=== PATIENT | male | born 1980 | race Caucasian/White ===

== ENCOUNTER 2016-08-08 15:36 | Emergency (ER) | payer OTHER ==
[~2016-08-08] VITALS: Ht 172.7 cm; Wt 116.6 kg
[~2016-08-08 15:36] MED LIST: ACET325T96 PO; INDO-24 PO; LEVE500T13 PO; LRS10 PO; QUIN1TAB PO; ZLF/100 PO
[2016-08-08 15:39] VITALS: TEMP 36.7; Ht 172.7 cm; Wt 116.6 kg
[2016-08-08] MEDS ORDERED: NRT/50 PO (15:56)
[2016-08-08 17:10] LABS: BASO % 0.3 %; BASO ABS # 0.02 K/uL (0-0.2); COMPLETE YES; EOS % 1.1 %; HEMATOCRIT 40.9 % (42-52); IG% 0.7 %; LYMPH % 23.6 %; LYMPH ABS # 1.73 K/uL (1.2-3.4); MEAN CORPUSCULAR HEMOGLOBIN 28.8 pg (25-34); MEAN CORPUSCULAR HGB CONC 34.7 g/dl (32-36); MONO % 6.3 %; PLATELET COUNT 345 K/uL (130-400); RED BLOOD COUNT 4.93 M/uL (4.7-6.1); WHITE BLOOD COUNT 7.32 K/uL (4.8-10.8)
[2016-08-08] MEDS ORDERED: KETOROLAC TROMETHAMINE 30 MG/ML VIAL IV STA (17:26)
[2016-08-08 17:30] LABS: URINE APPEARANCE CLEAR (CLEAR); URINE BILIRUBIN NEG (NEG); URINE COLOR YELLOW; URINE NITRITE NEG (NEG); URINE PH 5.5 (4.5-7.5); URINE SPECIFIC GRAVITY 1.024 (1.000-1.030); UROBILINOGEN NEG (NEG); ZZUR CULT IF INDIC CLEAN CATCH NO
[2016-08-08] MEDS ORDERED: DICYCLOMINE HCL 10 MG CAP PO ONE (17:30)
[2016-08-08 17:31] LABS: MANUAL MICROSCOPIC REQUIRED? NO; REVIEW REQ? NO
[2016-08-08 17:47] LABS: BUN/CREATININE RATIO 14.8 (10-20); CALCIUM 8.8 mg/dl (8.5-10.1); CREATININE 0.8 mg/dl (0.60-1.40); POTASSIUM 4.2 mmol/L (3.5-5.1)
[2016-08-08 18:03] LABS: ALB/GLOB RATIO 0.9 (0.9-2)
--- NOTE | 2016-08-08 19:10 | DIAGNOSTIC IMAGING REPORT ---
CT OF THE ABDOMEN AND PELVIS WITHOUT CONTRAST CLINICAL HISTORY: Left lower quadrant pain. COMPARISON STUDY: Right upper quadrant ultrasound November 25, 2009. TECHNIQUE: Axial images of the abdomen and pelvis were obtained without IV contrast. Images were reviewed in the axial, sagittal, and coronal planes. FINDINGS: No renal, ureteral or bladder calculi are present. There is no hydronephrosis or hydroureter. Evaluation of the remainder of the abdomen and pelvis is suboptimal on this unenhanced exam. Unenhanced images of the liver, spleen, adrenal glands and pancreas are normal. There is no peripancreatic or pericholecystic infiltration. There is no evidence for a bowel obstruction. The appendix is normal. There is no ascites. There is no lymphadenopathy. Skeletal structures are unremarkable. IMPRESSION: 1. No urinary calculi or hydronephrosis. 2. No acute process within the abdomen or pelvis on unenhanced exam. Electronically signed by: Kelvin Saldaña M.D. 08/08/2016 7:09 PM Dictated Date/Time: 08/08/2016 7:05 PM
--- NOTE | 2016-08-08 19:26 | EMERGENCY ROOM VISIT NOTE ---
History Report prepared by Lane: Nayla Beltran Under the Supervision of: Dr. Shantell Dias D.O. First contact with patient: 15:53 Chief Complaint: ABDOMINAL PAIN Stated Complaint: LOWER LEFT ABDOMINAL PAIN, PRESSURE LEFT SIDE History of Present Illness The patient is a 36 year old male who presents to the Emergency Room with complaints of abdominal pain in the LLQ for the past 2 weeks. He rates his discomfort as a 2 out of 10 in severity. He states that the pain worsens with coughing, movement, and pressure. The pain radiates down his leg, but not into his groin. He denies any changes in his bowel movements, urinary symptoms, fever , vomiting, or chills. He denies any changes to his diet recently. He has started working out on the idemama recently, but the pain is preventing him from working out lately. He has chronic ear pain and back pain and takes Tylenol and ibuprofen everyday. He also takes baclofen daily for his back. He denies any recent travel or other lifestyle changes. He admits to marijuana use. Source of History: patient Onset: 2 weeks ago Position: abdomen (LLQ) Symptom Intensity: 2/10 Quality: other (pain) Modifying Factors (Worsening): movement, other (coughing, pressure) Associated Symptoms: No chills, No fevers, No urinary symptoms, No vomiting Note: Pt reports that the pain radiates down to his leg. Pt denies any changes to bowel movements, or pain in the groin. Review of Systems See HPI for pertinent positives & negatives. A total of 10 systems reviewed and were otherwise negative. Past Medical & Surgical Medical Problems: (1) Bilateral pleural effusion (2) Chronic back pain (3) Constipation (4) Rib fracture (5) Scoliosis (6) Seizure (7) Sepsis syndrome (8) Sjoegren syndrome (9) Suppurative parotitis Surgical Problems: (1) S/P tonsillectomy Family History FHx: diabetes FHx: heart disease Hypertension Social History Smoking Status: Never Smoker Alcohol Use: none Drug Use: marijuana Marital Status: single Housing Status: lives with family Occupation Status: unemployed Current/Historical Medications Scheduled Levetiracetam (Keppra), 500 MG PO BID Nortriptyline HCl (Nortriptyline HCl), 50 MG PO QPM Quinapril HCl (Quinapril HCl), 40 MG PO DAILY Scheduled PRN Acetaminophen Tab (Tylenol), 650 MG PO for Pain Baclofen (Baclofen), 10 MG PO DIRECTED PRN for Muscle Spasms Dicyclomine Hcl (Bentyl), 20 MG PO Q8 PRN for abdominal pain Allergies Coded Allergies: Sulfamethoxazole w/Trimethoprim (Verified Allergy, Intermediate, RASH, FEVER, 08/08/16) Sulfa Antibiotics (Verified Adverse Reaction, Unknown, MUSCLE PAIN, ) Physical Exam Vital Signs Date Time Temp Pulse Resp B/P Pulse Ox O2 Delivery O2 Flow Rate FiO2 08/08/16 20:11 97 18 148/95 97 08/08/16 18:25 94 20 157/99 97 Room Air 08/08/16 17:22 95 20 176/118 96 Room Air 08/08/16 15:39 36.7 107 20 165/116 97 Room Air Physical Exam GENERAL: alert, well appearing, well nourished, no distress, non-toxic EYE EXAM: normal conjunctiva, PERRL and EOM's grossly intact OROPHARYNX: no exudate, no erythema, lips, buccal mucosa, and tongue normal and mucous membranes are moist NECK: supple, no nuchal rigidity, no adenopathy, non-tender LUNGS: Clear to auscultation. Normal chest wall mechanics HEART: no murmurs, S1 normal and S2 normal ABDOMEN: abdomen soft, minimal LLQ tenderness to palpation, normo-active bowel sounds, no masses, no rebound or guarding. BACK: Back is symmetrical on inspection and there is no deformity, no midline tenderness, no CVA tenderness. SKIN: no rashes and no bruising UPPER EXTREMITIES: upper extremities are grossly normal. LOWER EXTREMITIES: No pitting edema. NEURO EXAM: Normal sensorium, cranial nerves II-XII grossly intact, normal speech, no gross weakness of arms, no gross weakness of legs. Medical Decision & Procedures ER Provider Diagnostic Interpretation: Radiology results have been interpreted by the radiologist and reviewed by me. CT OF THE ABDOMEN AND PELVIS WITHOUT CONTRAST CLINICAL HISTORY: Left lower quadrant pain. COMPARISON STUDY: Right upper quadrant ultrasound November 25, 2009. TECHNIQUE: Axial images of the abdomen and pelvis were obtained without IV contrast. Images were reviewed in the axial, sagittal, and coronal planes. FINDINGS: No renal, ureteral or bladder calculi are present. There is no hydronephrosis or hydroureter. Evaluation of the remainder of the abdomen and pelvis is suboptimal on this unenhanced exam. Unenhanced images of the liver, spleen, adrenal glands and pancreas are normal. There is no peripancreatic or pericholecystic infiltration. There is no evidence for a bowel obstruction. The appendix is normal. There is no ascites. There is no lymphadenopathy. Skeletal structures are unremarkable. IMPRESSION: 1. No urinary calculi or hydronephrosis. 2. No acute process within the abdomen or pelvis on unenhanced exam. Electronically signed by: Kelvin Saldaña M.D. 08/08/2016 7:09 PM Dictated Date/Time: 08/08/2016 7:05 PM Laboratory Results 08/08/16 17:00 Red Blood Count 4.93, Mean Corpuscular Volume 83.0, Mean Corpuscular Hemoglobin 28.8, Mean Corpuscular Hemoglobin Concent 34.7, Mean Platelet Volume 8.0, Neutrophils (%) (Auto) 68.0, Lymphocytes (%) (Auto) 23.6, Monocytes (%) (Auto) 6.3, Eosinophils (%) (Auto) 1.1, Basophils (%) (Auto) 0.3, Neutrophils # (Auto) 4.98, Lymphocytes # (Auto) 1.73, Monocytes # (Auto) 0.46, Eosinophils # (Auto) 0.08, Basophils # (Auto) 0.02 08/08/16 17:00 Test 08/08/16 17:00 08/08/16 17:10 White Blood Count 7.32 K/uL (4.8-10.8) Red Blood Count 4.93 M/uL (4.7-6.1) Hemoglobin 14.2 g/dL (14.0-18.0) Hematocrit 40.9 % (42-52) Mean Corpuscular Volume 83.0 fL (80-100) Mean Corpuscular Hemoglobin 28.8 pg (25-34) Mean Corpuscular Hemoglobin Concent 34.7 g/dl (32-36) Platelet Count 345 K/uL (130-400) Mean Platelet Volume 8.0 fL (7.4-10.4) Neutrophils (%) (Auto) 68.0 % Lymphocytes (%) (Auto) 23.6 % Monocytes (%) (Auto) 6.3 % Eosinophils (%) (Auto) 1.1 % Basophils (%) (Auto) 0.3 % Neutrophils # (Auto) 4.98 K/uL (1.4-6.5) Lymphocytes # (Auto) 1.73 K/uL (1.2-3.4) Monocytes # (Auto) 0.46 K/uL (0.11-0.59) Eosinophils # (Auto) 0.08 K/uL (0-0.5) Basophils # (Auto) 0.02 K/uL (0-0.2) RDW Standard Deviation 41.5 fL (36.4-46.3) RDW Coefficient of Variation 13.7 % (11.5-14.5) Immature Granulocyte % (Auto) 0.7 % Immature Granulocyte # (Auto) 0.05 K/uL (0.00-0.02) Anion Gap 7.0 mmol/L (3-11) Est Creatinine Clear Calc Drug Dose 159.8 ml/min Estimated GFR () 134.1 Estimated GFR (Non- 115.7 BUN/Creatinine Ratio 14.8 (10-20) Calcium Level 8.8 mg/dl (8.5-10.1) Total Bilirubin 0.4 mg/dl (0.2-1) Aspartate Amino Transf (AST/SGOT) 26 U/L (15-37) Alanine Aminotransferase (ALT/SGPT) 49 U/L (12-78) Alkaline Phosphatase 73 U/L (45-117) Total Protein 8.5 gm/dl (6.4-8.2) Albumin 4.0 gm/dl (3.4-5.0) Globulin 4.5 gm/dl (2.5-4.0) Albumin/Globulin Ratio 0.9 (0.9-2) Lipase 98 U/L (73-393) Urine Color YELLOW Urine Appearance CLEAR (CLEAR) Urine pH 5.5 (4.5-7.5) Urine Specific [place] 1.024 (1.000-1.030) Urine Protein NEG (NEG) Urine Glucose (UA) NEG (NEG) Urine Ketones NEG (NEG) Urine Occult Blood NEG (NEG) Urine Nitrite NEG (NEG) Urine Bilirubin NEG (NEG) Urine Urobilinogen NEG (NEG) Urine Leukocyte Esterase NEG (NEG) Laboratory results per my review. Medications Administered Medications (Trade) Dose Ordered Sig/[place] Route Start Time Stop Time Status Last Admin Dose Admin Dicyclomine HCl (Bentyl Cap) 20 mg NOW ONCE PO 08/08/16 17:30 08/08/16 17:31 DC 08/08/16 18:23 20 MG Ketorolac Tromethamine (Toradol Inj) 30 mg NOW STAT IV 08/08/16 17:26 08/08/16 17:28 DC 08/08/16 18:23 30 MG Acetaminophen/ Hydrocodone Bitart ([place] 5/325 Tab) 1 tab NOW STAT PO 08/08/16 19:28 08/08/16 19:30 DC 08/08/16 20:01 1 TAB ED Course 1607: The patient was evaluated in room B4B. A complete history and physical exam was performed. 172: Toradol Inj 30 mg IV. 1729: Bentyl Cap 20 mg PO. 1913: I reevaluated the patient. He is resting comfortably. I discussed the results and treatment plan with him. He verbalized understanding and agreement. He will be discharged home. 1927: [place] 5/325 Tab 1 tab PO. Medical Decision Differential diagnoses includes but is not limited to gastritis, peptic ulcer disease, GERD, gallbladder disease, pancreatitis, small bowel obstruction, acute coronary syndrome, pericarditis, ischemic bowel, irritable bowel disease, irritable bowel syndrome, appendicitis, diverticulitis, malignancy, hernia, urinary tract infection, torsion, perforation, trauma, infectious. Patient well-appearing here despite complaints, vital signs stable, labs and imaging reassuring. Discussed with patient close follow-up with family doctor, symptoms watch and return for, possible need for GI evaluation, he verbalized understanding was agreeable with plan. Impression Primary Impression: Abdominal pain Scribe Attestation The scribe's documentation has been prepared under my direction and personally reviewed by me in its entirety. I confirm that the note above accurately reflects all work, treatment, procedures, and medical decision making performed by me. Departure Information Dispostion Home / Self-Care Prescriptions Dicyclomine Hcl (BENTYL) 20 Mg Tab 20 MG PO Q8 Y for abdominal pain, #20 TAB Prov: Shantell Dias, 08/08/16 Referrals Iveth Joseph MD (PCP) Forms Call Back Authorization, HOME CARE DOCUMENTATION FORM, IMPORTANT VISIT INFORMATION Patient Instructions My [facility] Additional Instructions Please call and follow-up with your family doctor. Please monitor for any changes. If you have any worsening pain, notice blood with a bowel movement, have difficulty urinating, develop fevers, vomiting, or have any other concerns , please return to the emergency room. Problem Qualifiers Primary Impression: Abdominal pain Abdominal location: left lower quadrant Qualified Codes: R10.32 - Left lower quadrant pain
[2016-08-08] MEDS ORDERED: DICY20TA35 PO (19:28)
[2016-08-08] MEDS ORDERED: HYDROCODONE/ACETAMOPHEN 5/325MG TAB PO STA (19:28)
[2016-08-08 20:11] VITALS: BP 148/95; PULSE 97; O2SAT 97
[2016-11-07] MEDS ORDERED: IBUP-1050 PO (13:39)
[2016-11-07] MEDS ORDERED: ARTISOL8 OPB (13:39)
[2016-11-07] MEDS ORDERED: NASAL SPRAY NAE (13:45)
[2016-11-08] MEDS ORDERED: CEPH500C2 PO (09:41)
[2016-11-16] MEDS ORDERED: OXYC-57 PO (09:52)
[2016-11-16] MEDS ORDERED: CEPH500C2 PO (09:52)
== END 2016-08-08 20:11 | disposition home or self-care (01) ==
LOC: C.EDB 15:37
DX: R10.32 Left lower quadrant pain (principal); G40.909 Epilepsy, unspecified, not intractable, without status epilepticus; M35.00 Sjogren syndrome, unspecified; G89.29 Other chronic pain; Z86.19 Personal history of other infectious and parasitic diseases; Z87.81 Personal history of (healed) traumatic fracture; Z79.899 Other long term (current) drug therapy; Z98.890 Other specified postprocedural states; Z88.2 Allergy status to sulfonamides; Z83.3 Family history of diabetes mellitus; Z82.49 Family history of ischemic heart disease and other diseases of the circulatory system

== ENCOUNTER 2016-11-15 06:20 | Observation (INO) | payer OTHER ==
[2016-11-07 13:40] VITALS: BMI 39.0
--- NOTE | 2016-11-07 14:25 | PAT Medication Instructions ---
Service Date Nov 07, 2016. Current Home Medication List Acetaminophen Tab (Tylenol), 650 MG PO for Pain Baclofen (Baclofen), 10 MG PO QID PRN for Muscle Spasms Ibuprofen (Advil), 400-600 MG PO TID PRN for RN Levetiracetam (Keppra), 500 MG PO BID Nortriptyline HCl (Nortriptyline HCl), 50 MG PO HS Quinapril HCl (Quinapril HCl), 40 MG PO QPM [Artificial Tears], 2 DROP OPB PRN [Nasal [place]], 2 SPRAYS NORMA PRN Medication Instructions For Your Scheduled Surgery - Check with surgeon for instructions: Ibuprofen (Advil), 400-600 MG PO TID PRN for RN - Hold the following medications the morning of surgery: Baclofen (Baclofen), 10 MG PO QID PRN for Muscle Spasms - Take the following medications the morning of surgery with a sip of water: [Nasal [place]], 2 SPRAYS NORMA PRN (if needed) [Artificial Tears], 2 DROP OPB PRN (if needed) Levetiracetam (Keppra), 500 MG PO BID Acetaminophen Tab (Tylenol), 650 MG PO for Pain (if needed) - Hold the following medications as scheduled the night before surgery: Quinapril HCl (Quinapril HCl), 40 MG PO QPM - Take the following medications as scheduled the night before surgery: [Nasal [place]], 2 SPRAYS NORMA PRN (if needed) [Artificial Tears], 2 DROP OPB PRN (if needed) Nortriptyline HCl (Nortriptyline HCl), 50 MG PO HS Levetiracetam (Keppra), 500 MG PO BID Baclofen (Baclofen), 10 MG PO QID PRN for Muscle Spasms (if needed) Acetaminophen Tab (Tylenol), 650 MG PO for Pain (if needed) If you have any questions please call us at [phone] or [phone] or [phone]
[2016-11-07 14:50] LABS: BASO % 0.3 %; BASO ABS # 0.02 K/uL (0-0.2); COMPLETE YES; EOS % 0.9 %; HEMATOCRIT 41.4 % (42-52); IG% 0.3 %; LYMPH % 24.9 %; LYMPH ABS # 1.74 K/uL (1.2-3.4); MEAN CELL VOLUME 83.6 fL (80-100); MEAN CORPUSCULAR HEMOGLOBIN 28.5 pg (25-34); MEAN CORPUSCULAR HGB CONC 34.1 g/dl (32-36); MONO % 9.1 %; NEUT % 64.5 %; PLATELET COUNT 364 K/uL (130-400); RED BLOOD COUNT 4.95 M/uL (4.7-6.1)
[2016-11-07 15:13] LABS: CALCIUM 9.4 mg/dl (8.5-10.1); CREATININE 0.72 mg/dl (0.60-1.40); POTASSIUM 4.3 mmol/L (3.5-5.1)
--- NOTE | 2016-11-14 12:10 | History and Physical ---
History & Physical Date Nov 14, 2016. 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 He continues to have significant pain and swelling especially of the left parotid gland more so than the right parotid gland. The patient requested excision of the left parotid gland because of prolonged discomfort. He was explained the risk including an especially facial nerve injury with possible permanent paralysis he understands and desires to proceed with the surgery. Past Medical/Surgical History Medical Problems: (1) Bilateral pleural effusion (2) Chronic back pain (3) Constipation (4) Rib fracture (5) Scoliosis (6) Seizure (7) Sepsis syndrome (8) Sjoegren syndrome (9) Suppurative parotitis Surgical Problems: (1) S/P tonsillectomy Additional History Hepatic Disease: No Endocrine Disorder: No Kidney Disease: No Hypertension: Yes Heart Disease: No Bleeding Tendencies: No Infectious Diseases: No Allergies Coded Allergies: Sulfamethoxazole w/Trimethoprim (Verified Allergy, Intermediate, RASH, FEVER, 11/07/16) Sulfa Antibiotics (Verified Adverse Reaction, Unknown, MUSCLE PAIN, ) Home Medications Scheduled Cephalexin Monohydrate (Keflex), 500 MG PO QID Levetiracetam (Keppra), 500 MG PO BID Nortriptyline HCl (Nortriptyline HCl), 50 MG PO HS Quinapril HCl (Quinapril HCl), 40 MG PO QPM [Artificial Tears], 2 DROP OPB PRN [Nasal [place]], 2 SPRAYS NORMA PRN Scheduled PRN Acetaminophen Tab (Tylenol), 650 MG PO for Pain Baclofen (Baclofen), 10 MG PO QID PRN for Muscle Spasms Ibuprofen (Advil), 400-600 MG PO TID PRN for RN Physical Examination Skin: warm/dry, no rash Eyes: normal inspection, EOMI, sclerae normal ENT: normal ENT inspection, pharynx normal Head: normocephalic, atraumatic Neck: supple, no adenopathy, trachea midline Respiratory/Chest: lungs clear, normal breath sounds, no respiratory distress Cardiovascular: regular rate, rhythm, no edema, no murmur Abdomen / GI: normal bowel sounds, non tender Back: normal inspection Extremities: normal inspection, normal range of motion Neurologic/Psych: no motor/sensory deficits, alert, normal reflexes, oriented x 3 Diagnosis 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
[~2016-11-15] VITALS: Ht 172.7 cm; Wt 116.5 kg
[2016-11-15] VITALS (9 sets, daily range): BP systolic 134–175; BP diastolic 82–95; PULSE 92–183; TEMP 36.5–37.5; O2SAT 95–98; Ht 172.7 cm; Wt 116.5 kg
[~2016-11-15 06:20] MED LIST changes: +ARTISOL8 OPB; +CEPH500C2 PO; +IBUP-1050 PO; -INDO-24 PO; +LACTATED RINGER'S 1000ML 1,000 ML IV SCH; +NASAL SPRAY NAE; +NRT/50 PO; -ZLF/100 PO
[2016-11-15] MEDS ORDERED: ONDANSETRON INJ 2 MG/ML 2 ML VIAL ONE (07:06)
[2016-11-15] MEDS ORDERED: DEXAMETHASONE SOD INJ 4 MG/ML VIAL ONE (07:06)
[2016-11-15] MEDS ORDERED: PROPOFOL IV EMULSION 10 MG/ML 20 ML VIAL IV ONE ×2 (07:06→13:10)
[2016-11-15] MEDS ORDERED: NEOSTIGMINE METHYLSULFATE 5 MG/5 ML SYR ONE (07:06)
[2016-11-15] MEDS ORDERED: GLYCOPYRROLATE INJ 0.2 MG/ML VIAL ONE (07:06)
[2016-11-15] MEDS ORDERED: LIDOCAINE HCL 2% 2 ML VIAL (20MG/ML) ONE (07:06)
[2016-11-15] MEDS ORDERED: ROCURONIUM BROMIDE 10 MG/ML 5 ML VIAL ONE (07:06)
[2016-11-15] MEDS ORDERED: MIDAZOLAM HCL 1 MG/ML 2ML VIAL ONE (07:07)
[2016-11-15] MEDS ORDERED: FENTANYL CITRATE INJ 50 MCG/1 ML 2 ML VIAL ONE ×2 (07:07→09:13)
--- NOTE | 2016-11-15 07:08 | History & Physical Bridge Note ---
H&P Re-Evaluation Bridge Note: I have examined the patient, reviewed the History & Physical and in the interval since the performance of the History & Physical I have noted the following changes of clinical significance: No changes noted
[2016-11-15] MEDS ORDERED: LIDO 2%/EPINEPHRINE 1:100000 20 ML VIAL INFIL ONE (08:41)
[2016-11-15] MEDS ORDERED: BACITRACIN OINT 15 GM TUBE ONE (08:41)
[2016-11-15] MEDS ORDERED: LABETALOL HCL IV 5 MG/ML 20ML IV PRN ×2 (09:15→12:30)
[2016-11-15] MEDS ORDERED: PROMETHAZINE HCL INJ 12.5 MG in SODIUM CHLORIDE 0.9% 50ML 50 ML IV PRN (09:15)
[2016-11-15] MEDS ORDERED: ONDANSETRON INJ 2 MG/ML 2 ML VIAL IV PRN ×2 (09:15→12:00)
[2016-11-15] MEDS ORDERED: KETOROLAC TROMETHAMINE 30 MG/ML VIAL IV. PRN (09:15)
[2016-11-15] MEDS ORDERED: ATROPINE SULFATE 0.1 MG/ML 5ML SYR IV PRN (09:15)
[2016-11-15] MEDS ORDERED: HYDROmorphone INJ 2 MG/ML SYR/VIAL ONE (10:06)
[2016-11-15] MEDS: HYDROmorphone INJ 2 MG/ML SYR/VIAL IV PRN ×8 (12:10→12:45)
[2016-11-15] MEDS ORDERED: CEFAZOLIN SOD 1 GM VIAL ONE (13:10)
[2016-11-15] MEDS ORDERED: SUCCINYLCHOLINE CHLORIDE 20 MG/ML 10 ML VIAL IV ONE (13:10)
--- NOTE | 2016-11-15 13:26 | Anesthesiology Progress Note ---
Anesthesia Post Op Note Date & Time Nov 15, 2016 at 13:25 Vital Signs Pain Intensity: 3 Vital Signs Past 12 Hours Date Time Temp Pulse Resp B/P (MAP) Pulse Ox O2 Delivery O2 Flow Rate FiO2 11/15/16 13:00 36.6 99 18 134/90 98 Nasal Cannula 4 11/15/16 12:45 36.6 98 18 129/87 98 Nasal Cannula 4 11/15/16 12:35 100 18 132/77 99 Nasal Cannula 4 11/15/16 12:25 118 18 128/84 95 Nasal Cannula 4 11/15/16 12:15 114 18 125/87 95 Mask 10 11/15/16 12:05 108 18 128/80 94 Mask 10 11/15/16 11:55 36.4 120 18 136/87 97 Mask 10 11/15/16 06:34 37.5 106 20 175/95 (121) 98 Notes Mental Status: alert / awake / arousable, participated in evaluation Pt Amnestic to Procedure: Yes Nausea / Vomiting: adequately controlled Pain: adequately controlled Airway Patency, RR, SpO2: stable & adequate BP & HR: stable & adequate Hydration State: stable & adequate Anesthetic Complications: no major complications apparent
[2016-11-15] MEDS ORDERED: IV FLUIDS COMPLETED PRN (13:45)
[2016-11-15] MEDS: D5W AND 1/2NSS + 20MEQ KCL 1,000 ML IV SCH ×2 (14:18→23:46)
[2016-11-15] MEDS: MoRPHine SULFATE 4 MG/ML 1 ML CARP\\VIAL IV PRN ×3 (14:37→21:13)
--- NOTE | 2016-11-15 15:00 | [facility] Operative Report ---
Operative Report Operative Date Nov 15, 2016. Pre-Operative Diagnosis Chronic sialoadenitis of the left parotid gland and Sjogren syndrome Post-Operative Diagnosis Chronic sialoadenitis of the left parotid gland and Sjogren syndrome Procedure(s) Performed Left Parotidectomy Surgeon Derrick Plan Checker Surgeon(s) None Estimated Blood Loss 100cc Findings Enlarged and inflamed left parotid Specimens A: Left superficial parotid Drains [place] Anesthesia Gen. endotracheal Complication(s) None Disposition Recovery Room / PACU Indications 36-year-old gentleman with recurrent parotitis treated with antibiotics including hospital admissions. He was referred to [facility] and underwent sialogram endoscopy. But continued to have pain and swelling of the left parotid gland requiring frequent treatment with antibiotics and prednisone. Because of the significant pain and discomfort the patient requested definitive treatment Description of Procedure The patient was brought to the operating room placed in supine position. The neck was hyperextended and the head was turned toward the right. He was prepped with ChloraPrep and draped in the usual sterile manner. The incision was a routine parotid incision following the preauricular crease and curving around the lobule of the ear over the mastoid and down to finger breath below the angle of the mandible into the neck. The incision was made using a 15 blade carried down through the skin and subcutaneous layer and then through the platysma layer. The parotid was superiorly from the auricular cartilage and the mastoid tip inferiorly the parotid was from the sternocleidomastoid initially preserving the greater auricular nerve and the facial vein but both of these had to be sacrificed later in that they both ran through the parotid gland. The facial nerve was identified deep to the tragal pointer and deep to the mastoid tip. The nerve was followed peripherally to the to the bifurcation following the superior temporal zygomatic and buccal branches peripherally and then following the inferior marginal mandibular and cervical branches laterally and inferiorly. All these branches were dissected free and follow peripherally in this manner excising the entire lateral lobe of the parotid. Bleeders were controlled using 3-0 silk ties and using the bipolar cautery. The incision was then closed in layers with interrupted 3-0 Vicryl sutures on the platysma layer and then interrupted 4-0 Vicryl sutures on the subcutaneous layer. The skin was closed with 4-0 nylon in the preauricular area and with skin jeanine in the neck area. The [place] drain was placed in the depth of the wound and sewn in place with a 2-0 silk suture. The patient tolerated the procedure well was taken to recovery area where the facial nerve function was noted to be intact I attest to the content of the Intraoperative Record and any orders documented therein. Any exceptions are noted below.
[2016-11-15] MEDS: ACETAMINOPHEN/HYDROCODONE ELIX 15 ML/CUP UDP PO PRN ×2 (15:37→21:43)
[2016-11-15] MEDS: CEFAZOLIN IV 1,000 MG in DEXTROSE 5% 50ML 50 ML IV SCH (21:18)
[2016-11-15] MEDS: LORAZEPAM INJ 1 MG in SYRINGE 0 ML IV PRN (23:35)
[2016-11-16] MEDS: MoRPHine SULFATE 4 MG/ML 1 ML CARP\\VIAL IV PRN ×3 (00:56→09:16)
[2016-11-16] MEDS: ACETAMINOPHEN/HYDROCODONE ELIX 15 ML/CUP UDP PO PRN ×2 (01:00→07:59)
[2016-11-16] MEDS: LORAZEPAM INJ 1 MG in SYRINGE 0 ML IV PRN (03:51)
[2016-11-16] MEDS: CEFAZOLIN IV 1,000 MG in DEXTROSE 5% 50ML 50 ML IV SCH (03:51)
[2016-11-16 04:03] VITALS: BP 146/94; PULSE 102; TEMP 36.8; O2SAT 95
[2016-11-16 07:27] VITALS: BP 149/92; PULSE 105; TEMP 36.8; O2SAT 98
[2016-11-16] MEDS ORDERED: OXYC-57 PO (09:52)
[2016-11-16] MEDS ORDERED: CEPH500C2 PO (09:52)
--- NOTE | 2016-11-16 09:55 | Discharge Instructions ---
Discharge Instructions Date of Service Nov 16, 2016. Admission Reason for Admission: Sialadenitis Discharge Discharge Diagnosis / Problem: same Discharge Goals Goal(s): Therapeutic intervention Activity Recommendations Activity Limitations: per Instructions/Follow-up section . Instructions / Follow-Up Instructions / Follow-Up ACTIVITY: Most patients are able to return to a full-time work schedule in 1 week; however this may vary according to your job. It may take longer to return to heavy physical or other demanding work, or shorter if you are feeling well. Do NOT drive a car until you are able to turn the neck side to side, which may take 1-[address] you are taking pain medicines. DIET: You may have temporary throat discomfort or difficulty swallowing. This is due to the surgery around your larynx (voice box) and esophagus (swallowing tube). These symptoms will gradually improve over the course of several weeks. Drink and eat foods that can be swallowed easily, e.g. juice, soup, gelatin, applesauce, scrambled eggs or mashed potatoes. You may be able to return to your usual diet in a couple of days. INCISION CARE: You may shower 24 hours after surgery but please do not swim for at least 2 weeks. After you are done showering, just pat your incision dry. If it is draining clear fluid, you can cover it with a dry dressing (such as gauze). Do NOT scrub with soap or washcloth for the first 10 days. Clean with peroxide and apply bacitracin ointment. Mild swelling at the incision site will go away in 4-6 weeks. The pink line will slowly fade to white during the next 6-12 months. Use a sunscreen (SPF#30 or higher) or wear a scarf for protection if in the sun for the first 6 months to a year as the sun can darken your scar. You may begin to use a hypoallergenic moisturizing cream (no vitamin E, Mederma , or other scar creams) along the incision after 2 weeks. COMMON PROBLEMS: Numbness of the skin under the chin or above the incision is normal and should go away in a few weeks. You may feel a lump or pressure in your throat sensation when swallowing for a few days. Your incision may feel itchy while it heals. Avoid rubbing or scratching if possible. You may feel neck stiffness, tightness or a pulling feeling. Some people prefer to sleep with an extra pillow for the first few days after the surgery, this helps keep swelling around your incision to a minimum. Your voice may be hoarse or weak. Pitch or tone may change. You may have difficulty singing. This usually goes back to normal over 6 weeks to 6 months. After surgery, you may notice a change in your mood, emotional ups and downs, depression, irritability or fatigue and weakness. These changes will get better as time passes. You do not need to be at bed rest, being active is normally well tolerated within reason. CALL YOUR DOCTOR IF: For any non-urgent questions, call Dr. Lujan office [phone] or the nursing unit where you were a patient. Call Dr. Meza [phone] or go to the Emergency Room if you have fever ( temperature greater than 100.5), chills, lightheadedness, shortness of breath, difficulty breathing, nausea, vomiting, numbness or tingling in your fingers, hands, or mouth, muscle spasms, or if you notice signs of wound infection ( redness, tenderness, or drainage from the incision). Please also call or go to the Emergency Room if you have any other urgent concerns. FOLLOW UP VISIT: Follow-up visit with Dr. Meza. Please call to schedule if not already scheduled. Current Hospital Diet Patient's current hospital diet: Regular Diet Discharge Diet Recommended Diet: Regular Diet Procedures Procedures Performed: Left Parotidectomy Pending Studies Studies pending at discharge: no Medical Emergencies . Who to Call and When: Medical Emergencies: If at any time you feel your situation is an emergency, please call 820 immediately. . Non-Emergent Contact Non-Emergency issues call your: Primary Care Provider . "Provider Documentation" section prepared by Vidhya Meza. . VTE Core Measure Inpt VTE Proph given/why not?: SCD's [place] Drug Monitoring Program Search Results: no issues identified
--- NOTE | 2016-11-16 09:59 | Discharge Summary ---
Discharge Summary Date of Service Nov 16, 2016. Admission Date/Reason Nov 15, 2016 at 11:59 Sialadenitis. Discharge Date/Disposition Nov 16, 2016 Home Diagnosis Principal Diagnosis: sialoadenitis Procedure(s) Performed parotidectomy Medication Reconciliation New Medications: Cephalexin Monohydrate (Keflex) 500 Mg Cap 500 MG PO TID, #15 CAP Oxycodone/Acetaminophen 5MG/325MG (Percocet 5MG/325MG) Tab 1-2 TABLETS PO Q4H PRN for Pain, #60 TAB Continued Medications: Acetaminophen Tab (Tylenol) 325 Mg Tab 650 MG PO PRN for Pain, TAB Baclofen (Baclofen) 10 Mg Tab 10 MG PO QID PRN for Muscle Spasms, #120 Cephalexin Monohydrate (Keflex) 500 Mg Cap 500 MG PO QID, CAP TO BE COMPLETED APPROXIMATELY 11/14/16. Ibuprofen (Advil) 200 Mg Tab 400-600 MG PO TID PRN for RN, TAB Levetiracetam (Keppra) 500 Mg Tab 500 MG PO BID, TAB Nortriptyline HCl (Nortriptyline HCl) 50 Mg Cap 50 MG PO HS, #30 Quinapril HCl (Quinapril HCl) 10 Mg Tab 40 MG PO QPM [Artificial Tears] () 2 DROP OPB PRN [Nasal [place]] () 2 SPRAYS NORMA PRN Admission Physical Exam As per Admitting History & Physical. 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
[2016-11-16 10:15] VITALS: BP 149/92; PULSE 105; TEMP 36.8; O2SAT 98
== END 2016-11-16 10:56 | disposition home or self-care (01) ==
LOC: C.ACU 06:20 → C.MSN 11:59 → ENRESERV 12:26
PROVIDERS: ADMIT Otolaryngology; ATTEND Otolaryngology
DX: K11.23 Chronic sialoadenitis (principal); M35.00 Sjogren syndrome, unspecified; Z79.899 Other long term (current) drug therapy